=== PATIENT | female | born 1970 | race African-American/Black ===

== ENCOUNTER → 2018-02-13 | Outpatient (CLI) | payer OTHER ==
--- NOTE | 2018-02-13 14:00 | RAD ---
CT head without intravenous contrast History: Headache and dizziness after trauma to head previous day. Comparison: None. Technique: Axial images are obtained of the head from the skull base through the vertex without IV contrast. Exposure: One or more of the following individualized dose reduction techniques were utilized for this examination: 1. Automated exposure control 2. Adjustment of the mA and/or kV according to patient size 3. Use of iterative reconstruction technique Findings: The ventricles are appropriate in size, shape, and location for the patient's age. No obvious intracranial mass, mass-effect, midline shift, hemorrhage or obvious acute infarction is identified. Basilar cisterns are patent. Bone windows demonstrate no acute calvarial abnormality. The visualized paranasal sinuses appear clear. Impression: 1. No acute intracranial process. Electronically signed by: Herbie Bueno MD (02/13/2018 1:57 PM) [place] [id number]
== END | disposition home or self-care (01) ==
LOC: CT 13:19
PROVIDERS: ATTEND Physician Assistant
DX: S09.8XXD Other specified injuries of head, subsequent encounter (principal); X58.XXXD Exposure to other specified factors, subsequent encounter
CPT/HCPCS: 70450